=== PATIENT | female | born 1990 | race Caucasian/White ===

== ENCOUNTER 2019-03-21 12:50 | Inpatient (IN) | payer OTHER ==
[2019-03-21] MEDS: ELECTROLYTE-148 SOLN 1,000 ML IV SCH ×2 (13:30→22:00)
[2019-03-21 14:18] VITALS: BMI 34.3
[2019-03-21 14:29] LABS: BASO % 0.3 % (0-2.0); EOS % 0.3 % (0-4.5); HEMATOCRIT 36.5 % (32.4-45.2); HEMOGLOBIN 12.1 GM/dL (10.7-15.3); LYMPH % 10.2 % (8-40); MCH 29.2 pg (25.7-33.7); MCHC 33.1 g/dl (32.0-36.0); MEAN CELL VOLUME 88.1 fl (80-96); MONO % 4.8 % (3.8-10.2); NEUT % 84.4 % (42.8-82.8); PLATELET COUNT 232 K/MM3 (134-434); RBC 4.15 M/mm3 (3.60-5.2); RDW 13.5 % (11.6-15.6)
[2019-03-21 14:42] LABS: INR 0.93 (0.83-1.09)
[2019-03-21 14:45] LABS: ACTIVATED PTT 28.2 SECONDS (25.2-36.5)
[2019-03-21 14:53] LABS: BLOOD UREA NITROGEN 12.9 mg/dL (7-18); CALCIUM 9.5 mg/dL (8.5-10.1); CREATININE 0.6 mg/dL (0.55-1.3); POTASSIUM 4.1 mmol/L (3.5-5.1)
[2019-03-21] MEDS ORDERED: FENTANYL/BUPIVACAINE/NS/PF - PCEA - 50 ML DISP.SYRIN EP ONE ×2 (16:16→20:31)
--- NOTE | 2019-03-21 16:30 | HP ---
Past Medical History - Primary Care Physician PCP:: Lindsey Gibson - Admission Chief Complaint: 28 yrs 39.3/7 weeks by sono & 39.2/7 weeks by dates admitted in labor . Onset LP since 2.00 AM History of Present Illness: PNC at , [facility] Wt gain 70 lbs 08/16/18 : panel : A Pos, rpr nr, Hbsag neg , Rubella immune, , hiv neg , CF screen neg pap lSIL , colposcopy deferred after delivery 11/05/18 Quantiferon neg , 1 hr gtt neg 91, rpr nr, 02/28/19 gc/ct neg, Gbs neg , hiv neg, h/h 13.0/39.1 , plt 246 US done 10/25/18 NT screen neg,18 weeks, , anatomy us wnl, ant placenta, cx 3.06 cm 03/19/19 sliup cephalic, , bpp8/8, , 36 weeks, lizett 18.8, efw 6'5" History Source: Patient, Medical Record Limitations to Obtaining History: No Limitations - Past Medical History 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 Weeks Gestation by Dates: 39.2 ...EDC by Dates: 03/26/19 ...EDC by Sono: 03/25/19 (39.3 weeks ) Heme/Onc: Yes: Anemia Infectious Disease: No: AIDS, HIV, STD's Psych: Yes: Anxiety (h/o anxiety , meds stopped when she knew about ). No: Addictions Endocrine: No: Catrachito's Disease, Bronwyn's Disease, Diabetes Insipidus, Diabetes Mellitus, Hyperparathyroidism, Hyperthyroidism, Hypothyroidism, Osteopenia, SIADH, Other - Past Surgical History Past Surgical History: Yes: Appendectomy (2016) Hx Myomectomy: No Hx Transabdominal Cerclage: No - Smoking History Smoking history: Never smoked Have you smoked in the past 12 months: No - Alcohol/Substance Use Hx Alcohol Use: No History of Substance Use: reports: None - Social History History of Recent Travel: No Home Medications - Allergies Allergies/Adverse Reactions: Allergies Allergy/AdvReac Type Severity Reaction Status Date / Time carrot Allergy Itching Verified 03/19/19 17:42 No Known Drug Allergies Allergy Verified 03/19/19 17:42 - Home Medications Home Medications: Ambulatory Orders Prenat 115/Iron Fum/Folic/Dss [ 19 Tablet] 1 tab PO DAILY 03/19/19 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 - Maternity Vital Signs: Vital Signs Temperature 98.3 F 03/21/19 14:07 Pulse Rate 69 03/21/19 14:07 Respiratory Rate 18 03/21/19 14:07 Blood Pressure 144/68 03/21/19 14:07 O2 Sat by Pulse Oximetry (%) Selected Entries 03/21/19 13:12 Weight 194 lb Constitutional: Yes: Well Nourished Eyes: Yes: WNL HENT: Yes: WNL, Normocephalic Neck: Yes: WNL Cardiovascular: Yes: WNL, Bruit Lungs: Clear to auscultation Breast(s): Yes: WNL - Abdominal Exam/OB Fundal Height: 40 Number of Fetuses: Single Presentation: Vertex Contractions: Yes Regularity: Regular (3-5 min) Heart Rate (range): 140 Heart Rate Location: Midline Category: I Accelerations: Uniform Decelerations: None - Vaginal Exam/OB Vaginal Bleediing: No Dilatation (cm): 5 Effacement (%): 90 Amniotic Membrane Status: Intact Presentation: Vertex/Position (exam at 4.35 pM) Station: -1 - 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 Musculoskeletal: Yes: WNL Extremities: Yes: WNL. No: Calf Tenderness Edema: Yes Edema: LLE: 1+, RLE: 1+ Integumentary: Yes: Tattoos Deep Tendon Reflex Grade: Normal +2 ...Motor Strength: WNL Psychiatric: Yes: WNL, Alert, Oriented - Labs Lab Results: CBC, BMP 03/21/19 13:48 03/21/19 13:48 Laboratory Tests 03/21/19 03/21/19 13:48 13:48 PT with INR 11.00 INR 0.93 PTT (Actin FS) 28.2 Blood Type A POSITIVE Antibody Screen Negative Problem List - Problems (1) with 39 completed weeks gestation Code(s): Z3A.39 - 39 WEEKS GESTATION OF (2) Labor established Code(s): BHM9379 - Assessment/Plan Plan : 28 yrs 39.3/7 weeks , in labor , gbs neg Plan trial vaginal delivery pt requests epidural labor analgesia
[2019-03-21] MEDS ORDERED: NALOXONE HCL 0.4 MG/ML VIAL IVPUSH PRN (17:42)
[2019-03-21] MEDS ORDERED: FENTANYL/BUPIVACAINE/NS/PF - PCEA - 50 ML DISP.SYRIN EP SCH (17:45)
[2019-03-21] MEDS ORDERED: OXYTOCIN 30 UNITS in 0.9% NS 30 UNIT/500 ML INFUS.BAG IVPB ONE (18:20)
[2019-03-21] MEDS ORDERED: OXYTOCIN 30 UNITS in 0.9% NS 30 UNIT/500 ML INFUS.BAG IVPB SCH (18:30)
[2019-03-21] MEDS ORDERED: OXYTOCIN 20 UNITS in 0.9% NS 20 UNIT/1,000 ML INFUS.BAG IV ONE (21:28)
[2019-03-21] MEDS ORDERED: LIDOCAINE HCL 1% PRESERVATIVE FREE - 30ML VIAL ONE (21:28)
--- NOTE | 2019-03-21 22:53 | PN ---
Progress Note, Labor Vaginal Exam #1 Labor Exam Date: 03/21/19 Labor Exam Time: 20:55 Heart Rate (range): 130-150 Dilatation: 7 Effacement (%): 90 Amniotic Membrane Status: Ruptured (AROM clear , smal amount) Presentation: Vertex/Position Station: 0 Remarks: uc 2-3 min fhr cat-1 pitocin in progress , started 18.45 hr due to irregular uc 4-6 min epidural given at 5.00 PM Selected Entries 03/21/19 21:00 Pulse Rate 91 H Blood Pressure 122/62 Vaginal Exam #2 Labor Exam Date: 03/22/19 Labor Exam Time: 00:00 Heart Rate (range): 150-160 Dilatation: 8-9 Effacement (%): 90, Amniotic Membrane Status: Ruptured Presentation: Vertex/Position (caput , cx ant lip edematous) Station: 0 Remarks: uc q 2-3 min fhr cat-1 pt is anxious , c/o pain , epidural top off Vaginal Exam #3 Labor Exam Date: 03/22/19 Labor Exam Time: 01:04 Heart Rate (range): 100 Dilatation: 10 Effacement (%): 100 Amniotic Membrane Status: Ruptured Presentation: Vertex/Position (large caput) Station: +1 (+1/+2) Remarks: pt in discomfort with pain, epidural not effective pt encouraged to push hfr 90-110-120 Selected Entries 03/22/19 00:00 Temperature 99.0 F
--- NOTE | 2019-03-22 02:34 | PN ---
Delivery - Delivery Vaginal Delivery: No Problems, Spontaneous (pt delievered vx presentation, NIKOLAI, large caput , tight loop of cord around neckx1 , clamped & cut before the delivery of shoulder ,immediate oral & nasal suction was done , baby girl . Median episiotmy was given , which was sutured in layers with chr catgut #2/0 . cord segment was cut for cord gas, & cord blood was collected. Placenta was delievered completely with membranes . 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 GBS neg pnc at [address] [place] [address] intra dysfunctional UC , pitocin augmentation was given v/s stable
[2019-03-22] MEDS ORDERED: BISACODYL 10 MG SUPP.RECT RC PRN (02:41)
[2019-03-22] MEDS ORDERED: oxyCODONE HCL 5 MG TABLET PO PRN (02:41)
[2019-03-22] MEDS ORDERED: WITCH HAZEL 50% (TUCKS) 40 PAD/JAR PAD TP PRN (02:41)
[2019-03-22] MEDS ORDERED: BENZOCAINE 28 GM HEMORRHOIDAL OINTMENT TP PRN (02:41)
[2019-03-22] MEDS ORDERED: BENZOCAINE 20% 57 GM BOTTLE TP PRN (02:41)
[2019-03-22] MEDS ORDERED: METHYLERGONOVINE MALEATE 0.2 MG/1 ML AMP IM PRN (02:41)
[2019-03-22] MEDS ORDERED: OXYTOCIN 20 UNITS in 0.9% NS 20 UNIT/1,000 ML INFUS.BAG IV SCH (02:45)
[2019-03-22] MEDS: ACETAMINOPHEN 325 MG TABLET (FP) PO PRN ×3 (04:10→18:05)
[2019-03-22] MEDS: IBUPROFEN 600 MG TABLET (FP) PO PRN ×3 (04:11→18:07)
[2019-03-22] MEDS: PRENATAL VITAMINS W/ FOLIC ACID TABLET (FP) PO SCH (10:11)
[2019-03-22] MEDS: FERROUS SO4 325 MG TABLET (FP) PO SCH ×2 (10:11→18:05)
--- NOTE | 2019-03-22 11:51 | PN ---
Progress Note (short form) - Note Progress Note: ppd #0 pt doing fine calm , rested & breast feeding the baby v/s stable bleeding moderate she voided urine p/a ut below umblicus , firm ,non tender perineum , sutures no c/o soreness Selected Entries 03/22/19 04:28 Temperature 98.2 F Pulse Rate 88 Blood Pressure 108/65 pt has h/o anxiety in the past presently she states she is fine I offered her consult by psychiatrist , she declined , she stated she does not need, she has family support Problem List - Problems (1) with 39 completed weeks gestation Code(s): Z3A.39 - 39 WEEKS GESTATION OF (2) Labor established Code(s): [id number] -
[2019-03-22] MEDS: ELECTROLYTE-148 SOLN 1,000 ML IV SCH ×2 (19:48)
[2019-03-23] MEDS: ACETAMINOPHEN 325 MG TABLET (FP) PO PRN ×4 (00:03→22:16)
[2019-03-23] MEDS: IBUPROFEN 600 MG TABLET (FP) PO PRN ×4 (00:03→22:15)
--- NOTE | 2019-03-23 08:17 | PN ---
Post Progress Note - Subjective Subjective: Pain controlled. No fevers/chills. No N/V. Ambulating. Post Day: 1 Type of Delivery: Vital Signs: Vital Signs Temperature 98.5 F 03/23/19 02:00 Pulse Rate 75 03/23/19 02:00 Respiratory Rate 18 03/23/19 02:00 Blood Pressure 105/63 03/23/19 02:00 O2 Sat by Pulse Oximetry (%) 99 03/22/19 00:45 Uterus: Yes: Fundus below umbilicus Abdomen/GI: Yes: Abdomen soft, Tolerating PO Lochia: Yes: Rubra Lochia, amount: Small Extremities: Yes: Calves non-tender Activity: Ambulating - Labs Labs: CBC WBC 14.0 K/mm3 (4.0-10.0) H 03/21/19 13:48 RBC 4.15 M/mm3 (3.60-5.2) 03/21/19 13:48 Hgb 12.1 GM/dL (10.7-15.3) 03/21/19 13:48 Hct 36.5 % (32.4-45.2) 03/21/19 13:48 MCV 88.1 fl (80-96) 03/21/19 13:48 MCH 29.2 pg (25.7-33.7) 03/21/19 13:48 MCHC 33.1 g/dl (32.0-36.0) 03/21/19 13:48 RDW 13.5 % (11.6-15.6) 03/21/19 13:48 Plt Count 232 K/MM3 (134-434) 03/21/19 13:48 MPV 8.0 fl (7.5-11.1) 03/21/19 13:48 Absolute Neuts (auto) 11.8 K/mm3 (1.5-8.0) H 03/21/19 13:48 Neutrophils % 84.4 % (42.8-82.8) H 03/21/19 13:48 Lymphocytes % 10.2 % (8-40) 03/21/19 13:48 Monocytes % 4.8 % (3.8-10.2) 03/21/19 13:48 Eosinophils % 0.3 % (0-4.5) 03/21/19 13:48 Basophils % 0.3 % (0-2.0) 03/21/19 13:48 Nucleated RBC % 0 % (0-0) 03/21/19 13:48 Assessment/Plan 28yo s/p , PPD#1 Routine PP care Labs pending OOB, ambulate D/C to home PPD#2 Timi Viera MD
[2019-03-23 08:32] LABS: BASO % 0.5 % (0-2.0); EOS % 1.1 % (0-4.5); HEMATOCRIT 30.8 % (32.4-45.2); HEMOGLOBIN 10.3 GM/dL (10.7-15.3); LYMPH % 18.9 % (8-40); MCH 29.5 pg (25.7-33.7); MCHC 33.3 g/dl (32.0-36.0); MEAN CELL VOLUME 88.5 fl (80-96); MEAN PLT VOLUME 8.2 fl (7.5-11.1); MONO % 7.6 % (3.8-10.2); NEUT % 71.9 % (42.8-82.8); PLATELET COUNT 202 K/MM3 (134-434); RBC 3.48 M/mm3 (3.60-5.2); RDW 13.4 % (11.6-15.6)
[2019-03-23] MEDS: FERROUS SO4 325 MG TABLET (FP) PO SCH ×2 (08:45→18:00)
[2019-03-23] MEDS: PRENATAL VITAMINS W/ FOLIC ACID TABLET (FP) PO SCH (10:01)
--- NOTE | 2019-03-23 11:50 | DS ---
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 Vital Signs: Vital Signs Temperature 98.0 F 03/23/19 10:00 Pulse Rate 79 03/23/19 10:00 Respiratory Rate 20 03/23/19 10:00 Blood Pressure 127/68 03/23/19 10:00 O2 Sat by Pulse Oximetry (%) 99 03/22/19 00:45 Selected Entries 03/24/19 07:25 Temperature 98.9 F Pulse Rate 76 Blood Pressure 117/59 L Constitutional: Yes: Well Nourished Eyes: Yes: WNL HENT: Yes: WNL Neck: Yes: WNL Cardiovascular: Yes: WNL Respiratory: Yes: WNL Gastrointestinal: Yes: WNL, Normal Bowel Sounds ...Rectal Exam: Yes: WNL Renal/: Yes: WNL ....Post : Yes: Uterus firm, Uterus non-tender, Moderate lochia rubra ( perineum , epi wound healing) Breast(s): Yes: WNL (BF , Breast not engorged) Musculoskeletal: Yes: WNL Extremities: Yes: WNL. No: Calf Tenderness Integumentary: Yes: WNL, Tattoos Neurological: Yes: WNL, Alert ...Motor Strength: WNL Psychiatric: Yes: WNL, Alert, Oriented Labs: CBC, BMP 03/23/19 08:00 03/21/19 13:48 Delivery - Delivery Vaginal Delivery: No Problems, Spontaneous (pt delievered vx presentation, NIKOLAI, large caput , tight loop of cord around neckx1 , clamped & cut before the delivery of shoulder ,immediate oral & nasal suction was done , baby girl . Median episiotmy was given , which was sutured in layers with chr catgut #2/0 . cord segment was cut for cord gas, & cord blood was collected. Placenta was delievered completely with membranes . bladder cathetrized & emptied-150 ml .AL exam mucosa & sphincter was intact) Type of Anesthesia: Local, Epidural Episiotomy/Laceration: Midline EBL (cc): 300 (urine post delivery 150 ml ) Delivery, Single - Stages of Labor Date 1st Stage Initiatied: 03/21/19 Time 1st Stage Initiated: 02:00 Date 2nd Stage Initiated: 03/22/19 Time 2nd Stage Initiated: 01:04 Date of Delivery: 09/18/19 Time of Delivery: 01:41 Time Placenta Delivered: 01:44 Placenta: Yes: Spontaneous, Uterine Exploration - Condition of Infant Timber Setter/Senior Payroll Specialist Present: No Gender: Female Weight: 6 lb 10 oz Position: Right, OA (cord around neckx1) Total Hours ROM (Hrs/Mins): 4hrs 49 min - 1 Minute Total Score: 8 5 Minutes Total Score: 9 - Feeding Plan Initial Plan: Exclusive throughout hospitalization Remarks - Remarks Remarks: 28 yrs 39.3/7 weeks in labor . GBS neg pnc at [address] [place] [address] intra dysfunctional UC , pitocin augmentation was given v/s stable post course uneventful pt is discharged 03/24/19 Discharge Summary Reason For Visit: LABOR ADMISSION Current Active Problems Labor established (Acute) with 39 completed weeks gestation (Acute) Condition: Stable - Instructions Diet, Activity, Other Instructions: Regular Diet Follow up in 4-6 weeks for your visit Referrals: Monse Viera MD [Staff Physician] - Disposition: HOME - Home Medications Comprehensive Discharge Medication List: Ambulatory Orders Prenat 115/Iron Fum/Folic/Dss [ 19 Tablet] 1 tab PO DAILY 03/19/19 Ibuprofen 600 mg PO Q6H PRN #30 tablet 03/23/19 95/Iron Fum/Folic/Dha [ + Dha Combo Pack] 1 each PO DAILY 30 Days #30 combo..pkg 03/23/19
[2019-03-23] MEDS ORDERED: SENNOSIDES/DOCUSATE COMBO (SENNA PLUS) TABLET (UD) PO PRN (22:00)
--- NOTE | 2019-03-24 06:11 | PN ---
Progress Note (short form) - Note Progress Note: ppd 2 no c/o voids ok, no excess vaginal bleeding CBC, BMP 03/23/19 08:00 03/21/19 13:48 Last Vital Signs Temp Pulse Resp BP Pulse Ox 98.0 F 71 20 120/71 99 03/23/19 22:00 03/23/19 22:00 03/23/19 22:00 03/23/19 22:00 03/22/19 00:45 abdomen soft, no cva , uterus firm lochia mild no calf tenderness plan d/c home , follow up [facility] 4 weeks
[2019-03-24] MEDS: IBUPROFEN 600 MG TABLET (FP) PO PRN (07:29)
[2019-03-24] MEDS: FERROUS SO4 325 MG TABLET (FP) PO SCH (07:29)
[2019-03-24] MEDS: ACETAMINOPHEN 325 MG TABLET (FP) PO PRN (07:30)
[2019-03-24 08:44] VITALS: BP 117/59; PULSE 76; TEMP 98.9
[2019-03-24] MEDS: PRENATAL VITAMINS W/ FOLIC ACID TABLET (FP) PO SCH (09:20)
== END 2019-03-24 11:40 | disposition home or self-care (01) | DRG 807 ==
LOC: JLDR 12:50 → J3W 03-22 04:00
PROVIDERS: ADMIT Obstetrics & Gynecology; ATTEND Obstetrics & Gynecology
PROC: 10E0XZZ Delivery of Products of Conception, External Approach (ICD-10-PCS; principal; 2019-03-22)
PROC: 0W8NXZZ Division of Female Perineum, External Approach (ICD-10-PCS; 2019-03-22)
DX: O69.81X0 Labor and delivery complicated by cord around neck, without compression, not applicable or unspecified (principal); Z37.0 Single live birth; Z3A.39 39 weeks gestation of pregnancy
CPT/HCPCS: 36415; 36600; 59409; 80048; 82803; 85025; 85610; 85730; 86593; 86850; 86900; 86901